=== PATIENT | female | born 1990 ===

== ENCOUNTER 2018-10-15 08:03 | Emergency (ER) | payer SELFPAY ==
--- NOTE | 2018-10-15 09:32 | ER ---
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 Transition of care: patient was not received from another setting of care. Onset of symptoms was October 15, 2018. Risk Assessment: Do you want to hurt yourself or someone else? Patient reports no desire to harm self or others. Initial Sepsis Screen: Does the patient meet any 2 criteria? No. Patient's initial sepsis screen is negative. Does the patient have a suspected source of infection? No. Patient's initial sepsis screen is negative. Care prior to arrival: None. 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 - Social history:: Smoking status: Patient/guardian denies using tobacco. - Ebola Screening: : No symptoms or risks identified at this time. - Family history:: not pertinent. Screenin:22 Abuse screen: Denies threats or abuse. Denies injuries from another. Nutritional hb screening: No deficits noted. Tuberculosis screening: No symptoms or risk factors identified. Fall Risk None identified. Assessment: 08:30 General: Appears in no apparent distress. uncomfortable, Behavior is calm, cooperative, ph appropriate for age. Pain: Complains of pain in dorsum of left foot. Neuro: Level of Consciousness is awake, alert, obeys commands, Oriented to person, place, time, situation. Cardiovascular: Capillary refill < 3 seconds in bilateral fingers toes Patient's skin is warm and dry. Respiratory: Airway is patent Respiratory effort is even, unlabored. Derm: Skin is healthy with good turgor, Skin is pink, warm \T\ dry. Musculoskeletal: Circulation, motion, and sensation intact. Range of motion: intact in all extremities. Injury Description: Abrasion sustained to left knee. 10:15 Reassessment: Patient appears in no apparent distress at this time. Patient and/or ph family updated on plan of care and expected duration. Pain level reassessed. Patient is alert, oriented x 3, equal unlabored respirations, skin warm/dry/pink. Pt d/c home w/ SO. Vital Signs: 08:20 BP 139 / 82; Pulse 101; Resp 16; Temp 98; Pulse Ox 100% ; Pain 8/10; hb ED Course: 08:07 Patient arrived in ED. tw3 08:20 Mick Beckman MD is Attending Physician. agustina 08:22 Triage completed. hb 08:22 Arm band placed on. hb 08:47 Foot Left 3 View XRAY In Process Unspecified. EDMS 09:20 Davis Alvarez MD is Referral Physician. agustina 09:35 Jennifer Cullen, RN is Primary Nurse. ph 09:53 WALKING BOOT FITTED ON PATIENT. mh5 09:55 Patient has correct armband on for positive identification. Bed in low position. Adult mh5 w/ patient. Pulse ox on. NIBP on. 10:15 No provider procedures requiring assistance completed. Patient did not have IV access ph during this emergency room visit. Administered Medications: 10:15 Drug: [place] 10 mg-325 mg 1 tabs Route: PO; hb 12:03 Follow up: Response: No adverse reaction ph 10:15 Drug: Neosporin Ointment 1 application Route: Topical; Site: affected area; hb 12:03 Follow up: Response: No adverse reaction ph 10:15 Drug: Zofran 4 mg Route: PO; hb 12:03 Follow up: Response: No adverse reaction ph Outcome: 09:30 Discharge ordered by . agustina 10:22 Patient left the ED. ph 10:22 Discharged to home ambulatory, with crutches, with significant other. ph 10:22 Condition: good 10:22 Discharge instructions given to patient, Instructed on discharge instructions, follow up and referral plans. medication usage, Demonstrated understanding of instructions, follow-up care, medications, Prescriptions given X 3. Signatures: Dispatcher [employer] EDHI Mick Beckman MD MD cha Hall, Patricia, RN RN ph Ananya Blake RN RN Jessy Gilliland [facility] Navi, [facility]
--- NOTE | 2018-10-15 09:32 | EDPHYS ---
Physician Documentation [facility] Name: Rosa Montgomery Age: 28 yrs Sex: Female : 1990 Arrival Date: 10/15/2018 Time: 08:07 Bed 17 Private MD: ED Physician Mick Beckman HPI: 10/15 09:18 This 28 yrs old Female presents to ER via Ambulatory with complaints of Foot agustina Pain. 09:18 The patient presents with decreased range of motion, an injury, pain, swelling, agustina tenderness. The complaints affect the left foot. Context: The problem was sustained on a street or driveway. Onset: The symptoms/episode began/occurred just prior to arrival. Modifying factors: The symptoms are alleviated by elevation of extremity, the symptoms are aggravated by weight bearing, movement. Associated signs and symptoms: The patient has no apparent associated signs or symptoms. Severity of symptoms: At their worst the symptoms were mild, moderate, in the emergency department the symptoms are unchanged. 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 - Social history:: Smoking status: Patient/guardian denies using tobacco. - Ebola Screening: : No symptoms or risks identified at this time. - Family history:: not pertinent. ROS: 09:18 Constitutional: Negative for fever, chills, and weight loss, Eyes: Negative for injury, agustina pain, redness, and discharge, ENT: Negative for injury, pain, and discharge, Neck: Negative for injury, pain, and swelling, Cardiovascular: Negative for chest pain, palpitations, and edema, Respiratory: Negative for shortness of breath, cough, wheezing, and pleuritic chest pain, Abdomen/GI: Negative for abdominal pain, nausea, vomiting, diarrhea, and constipation, Back: Negative for injury and pain, : Negative for injury, bleeding, discharge, and swelling, Skin: Negative for injury, rash, and discoloration, Neuro: Negative for headache, weakness, numbness, tingling, and seizure, Psych: Negative for depression, anxiety, suicide ideation, homicidal ideation, and hallucinations, Allergy/Immunology: Negative for hives, rash, and allergies, Endocrine: Negative for neck swelling, polydipsia, polyuria, polyphagia, and marked weight changes, Hematologic/Lymphatic: Negative for swollen nodes, abnormal bleeding, and unusual bruising. 09:18 MS/extremity: Positive for decreased range of motion, pain, swelling, tenderness, of the dorsum of left foot, left fourth toe and left fifth toe. Exam: 09:18 Constitutional: This is a well developed, well nourished patient who is awake, alert, agustina and in no acute distress. Head/Face: Normocephalic, atraumatic. Eyes: Pupils equal round and reactive to light, extra-ocular motions intact. Lids and lashes normal. Conjunctiva and sclera are non-icteric and not injected. Cornea within normal limits. Periorbital areas with no swelling, redness, or edema. ENT: Nares patent. No nasal discharge, no septal abnormalities noted. Tympanic membranes are normal and external auditory canals are clear. Oropharynx with no redness, swelling, or masses, exudates, or evidence of obstruction, uvula midline. Mucous membranes moist. Neck: Trachea midline, no thyromegaly or masses palpated, and no cervical lymphadenopathy. Supple, full range of motion without nuchal rigidity, or vertebral point tenderness. No Meningismus. Chest/axilla: Normal chest wall appearance and motion. Nontender with no deformity. No lesions are appreciated. Cardiovascular: Regular rate and rhythm with a normal S1 and S2. No gallops, murmurs, or rubs. Normal PMI, no JVD. No pulse deficits. Respiratory: Lungs have equal breath sounds bilaterally, clear to auscultation and percussion. No rales, rhonchi or wheezes noted. No increased work of breathing, no retractions or nasal flaring. Abdomen/GI: Soft, non-tender, with normal bowel sounds. No distension or tympany. No guarding or rebound. No evidence of tenderness throughout. Back: No spinal tenderness. No costovertebral tenderness. Full range of motion. Skin: Warm, dry with normal turgor. Normal color with no rashes, no lesions, and no evidence of cellulitis. Neuro: Awake and alert, GCS 15, oriented to person, place, time, and situation. Cranial nerves II-XII grossly intact. Motor strength 5/5 in all extremities. Sensory grossly intact. Cerebellar exam normal. Normal gait. Psych: Awake, alert, with orientation to person, place and time. Behavior, mood, and affect are within normal limits. 09:18 Musculoskeletal/extremity: Extremities: noted in the dorsum of left foot, left fourth toe and left fifth toe: decreased ROM, pain. Vital Signs: 08:20 BP 139 / 82; Pulse 101; Resp 16; Temp 98; Pulse Ox 100% ; Pain 8/10; hb MDM: 08:20 Patient medically screened. [facility] 09:18 Data reviewed: vital signs, nurses notes, radiologic studies. [facility] 10/15 08:26 Order name: Foot Left 3 View XRAY; Complete Time: 10:08 10/15 09:32 Order name: Ice pack; Complete Time: 09:55 [facility] 10/15 09:32 Order name: Walking boot: short; Complete Time: 09:36 [facility] Administered Medications: 10:15 Drug: [place] 10 mg-325 mg 1 tabs Route: PO; hb 12:03 Follow up: Response: No adverse reaction ph 10:15 Drug: Neosporin Ointment 1 application Route: Topical; Site: affected area; hb 12:03 Follow up: Response: No adverse reaction ph 10:15 Drug: Zofran 4 mg Route: PO; hb 12:03 Follow up: Response: No adverse reaction ph Disposition: 10/15/18 09:30 Discharged to Home. Impression: Displaced fracture of fourth metatarsal bone, unspecified foot - distal, Contusion of left knee, Abrasion, left knee. - Condition is Stable. - Discharge Instructions: Metatarsal Fracture. - Prescriptions for Tylenol- Codeine #3 300-30 mg Oral Tablet - take 2 tablet by ORAL route every 6 hours As needed; 30 tablet. Motrin IB 200 mg Oral Tablet - take 2 tablet by ORAL route every 6 hours As needed as needed with food; 30 tablet. Zofran 4 mg Oral Tablet - take 1 tablet by ORAL route every 12 hours As needed; 14 tablet. - Medication Reconciliation Form, Thank You Letter, Antibiotic Education, Prescription Opioid Use form. - Follow up: Private Physician; When: 2 - 3 days; Reason: Recheck today's complaints, Continuance of care, Re-evaluation by your physician. Follow up: Davis Alvarez MD; When: 2 - 3 days; Reason: Recheck today's complaints, Re-evaluation by your physician. - Problem is new. - Symptoms have improved. Signatures: Dispatcher [employer] EDMick Mcmullen MD MD cha Hall, Patricia, KALEIGH RN Ananya Blake RN RN Corrections: (The following items were deleted from the chart) 10:22 09:30 10/15/2018 09:30 Discharged to Home. Impression: Displaced fracture of fourth ph metatarsal bone, unspecified foot - distal; Contusion of left knee; Abrasion, left knee. Condition is Stable. Forms are Medication Reconciliation Form, Thank You Letter, Antibiotic Education, Prescription Opioid Use. Follow up: Private Physician; When: 2 - 3 days; Reason: Recheck today's complaints, Continuance of care, Re-evaluation by your physician. Follow up: Davis Alvarez; When: 2 - 3 days; Reason: Recheck today's complaints, Re-evaluation by your physician. Problem is new. Symptoms have improved. agustina
--- NOTE | 2018-10-15 09:45 | RAD REPORT ---
EXAM DESCRIPTION: RAD - Foot Left 3 View - 10/15/2018 8:47 am CLINICAL HISTORY: Left Foot pain status post fall FINDINGS: Mildly impacted fracture involves the fourth metatarsal neck. No dislocation seen
[2018-10-15] MEDS ORDERED: HYDROCODONE/APAP 10/325 TAB ONE (10:12)
[2018-10-15] MEDS ORDERED: ONDANSETRON 4 MG (ODT) TAB ONE (10:28)
== END 2018-10-15 10:22 | disposition home or self-care (01) ==
LOC: ER 08:03
DX: S92.342A Displaced fracture of fourth metatarsal bone, left foot, initial encounter for closed fracture (principal); S80.02XA Contusion of left knee, initial encounter; S80.212A Abrasion, left knee, initial encounter; W01.0XXA Fall on same level from slipping, tripping and stumbling without subsequent striking against object, initial encounter; Y93.9 Activity, unspecified; Y92.9 Unspecified place or not applicable
CPT/HCPCS: 99284

== ENCOUNTER 2020-11-12 23:11 | Emergency (ER) | payer OTHER ==
--- OUTSIDE RECORDS SUMMARY | 2020-11-12 23:14 | XMS REPORT | Continuity of Care Document ---
:1990 Author Organization [facility] t Address [address] [place] [address] Care Team Providers Name Role Phone Edie Meredith Attending Clinician Problems This patient has no known problems. Allergies, Adverse Reactions, Alerts This patient has no known allergies or adverse reactions. Medications This patient has no known medications. Procedures This patient has no known procedures. Encounters Start End Encounter Admission Attending Care Care Encounter Source Date/Time Date/Time Type Type Clinicians Facility Department ID 2020-10-25 2020-10-25 Telephone DOROTEO Pavon [id number] 00:00:00 00:00:00 Shanta Irizarry HOSPICE ADMINISTRATOR [id number] [facility] [id number] MATERNAL [id number] & CHILD [address] [place] [address] Results This patient has no known results.
[2020-11-12 23:36] LABS: Urine Blood 2+ (Negative); Urine Glucose Negative (Negative); Urine Protein Negative (Negative); Urine Specific Gravity 1.015 (1.005-1.030)
[2020-11-13] MEDS ORDERED: NA CHLORIDE 0.9% 1,000 ML ONE (00:14)
[2020-11-13 00:16] LABS: ALT/SGPT 34 U/L (12-78); AST/SGOT 19 U/L (15-37); Albumin 4.2 g/dL (3.4-5.0); Alkaline Phosphatase 91 U/L (45-117); BUN Blood Urea Nitrogen 19 mg/dL (7-18); Bicarbonate 26 mmol/L (21-32); Bilirubin Direct < 0.1 mg/dL (0-0.2); Bilirubin Total 0.4 mg/dL (0.2-1.0); Glucose Level 138 mg/dL (74-106); Lipase 121 U/L (73-393); Potassium 3.5 mmol/L (3.5-5.1); Protein, Total 7.8 g/dL (6.4-8.2); Sodium Level 139 mmol/L (136-145)
[2020-11-13] MEDS ORDERED: ONDANSETRON 4 MG/2 ML VIAL ONE ×2 (00:21→02:04)
[2020-11-13 00:22] LABS: Absolute Lymphocytes (CBC) 1.7 K/uL (0.7-4.9); Basophils % 0.4 % (0-1.3); Hematocrit 42.4 % (36.0-45.0); Lymphocytes % 14.5 % (15.3-44.8); RBC Red Blood Cell Count 4.77 M/uL (3.86-4.86)
[2020-11-13] MEDS ORDERED: CEFTRIAXONE/SWI 1gm 1 GM/10 ML SYR ONE (00:34)
--- NOTE | 2020-11-13 01:50 | ER ---
Nurse's Notes [facility] Name: Rosa Padilla Age: 30 yrs Sex: Female : 1990 Arrival Date: 11/12/2020 Time: 23:12 Bed 7 Private MD: Diagnosis: Acute cystitis without hematuria-with right pyelonephritis Presentation: 11/12 23:21 Chief complaint: Patient states: she is having a sudden sharp pain in her right side bb which just started feels nauseous, chills, no vomiting, no diarrhea. Coronavirus screen: At this time, the client does not indicate any symptoms associated with coronavirus-19. Ebola Screen: No symptoms or risks identified at this time. Initial Sepsis Screen: Does the patient meet any 2 criteria? No. Patient's initial sepsis screen is negative. Does the patient have a suspected source of infection? No. Patient's initial sepsis screen is negative. Risk Assessment: Do you want to hurt yourself or someone else? Patient reports no desire to harm self or others. Onset of symptoms was November 12, 2020. 23:21 Method Of Arrival: Ambulatory bb 23:21 Acuity: KIM 3 bb Triage Assessment: 23:24 General: Appears uncomfortable, Behavior is cooperative, anxious. Pain: Pain: Complains bb of pain in abdomen Pain currently is 8 out of 10 on a pain scale. Pain began suddenly. Neuro: Level of Consciousness is awake, alert, obeys commands, Oriented to person, place, time, situation. Cardiovascular: No deficits noted. Respiratory: Respiratory effort is even, unlabored. GI: Abdomen is non-distended, Reports lower abdominal pain. : Reports urgency. Derm: Skin is pink, warm \T\ dry. Musculoskeletal: Circulation, motion, and sensation intact. 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 - Social history:: Smoking status: Patient denies any tobacco usage or history of. Patient/guardian denies using alcohol, street drugs, The patient lives with family. - Family history:: not pertinent. Screenin:30 Abuse screen: Denies threats or abuse. Denies injuries from another. Nutritional wh screening: No deficits noted. Tuberculosis screening: No symptoms or risk factors identified. Fall Risk None identified. Assessment: 23:30 General: Appears in no apparent distress. Behavior is calm, cooperative, appropriate wh for age. Pain: Complains of pain in right upper quadrant and right lower quadrant Pain radiates to back Pain began suddenly. Neuro: Level of Consciousness is awake, alert, obeys commands, Oriented to person, place, time, situation, Appropriate for age. Cardiovascular: Heart tones S1 S2. Respiratory: Airway is patent Respiratory effort is even, unlabored, Respiratory pattern is regular, symmetrical. GI: Abdomen is flat, non-distended, Bowel sounds present X 4 quads. Abd is soft and non tender X 4 quads. Reports lower abdominal pain, upper abdominal pain, nausea. : No signs and/or symptoms were reported regarding the genitourinary system. EENT: No signs and/or symptoms were reported regarding the EENT system. Derm: Skin is intact, is healthy with good turgor, Skin is pink, warm \T\ dry. normal. Musculoskeletal: Circulation, motion, and sensation intact. 11/13 00:45 Reassessment: Patient appears in no apparent distress at this time. No changes from previously documented assessment. Patient and/or family updated on plan of care and expected duration. Pain level reassessed. Patient is alert, oriented x 3, equal unlabored respirations, skin warm/dry/pink. 02:00 Reassessment: Patient appears in no apparent distress at this time. Patient and/or family updated on plan of care and expected duration. Pain level reassessed. Patient is alert, oriented x 3, equal unlabored respirations, skin warm/dry/pink. Patient states feeling better. Patient states symptoms have improved. Vital Signs: 11/12 23:21 BP 142 / 89; Pulse 108; Resp 99 S; Temp 98.4(O); Weight 72.57 kg (R); Height 5 ft. 5 bb in. (165.10 cm) (R); Pain 7/10; 23:41 Resp 19 S; bb 11/13 00:30 BP 119 / 90; Pulse 82; Resp 18; Pulse Ox 99% on R/A; 02:00 BP 129 / 87; Pulse 84; Resp 18; Pulse Ox 98% on R/A; 11/12 23:21 Body Mass Index 26.63 (72.57 kg, 165.10 cm) bb ED Course: 11/12 23:12 Patient arrived in ED. cl3 23:23 Triage completed. bb 23:24 Arm band placed on Patient placed in an exam room, on a stretcher, on pulse oximetry. bb Family accompanied patient. 23:27 Candy Mackenzie MD is Attending Physician. ma2 23:28 Jatinder Palumbo, KALEIGH is Primary Nurse. 23:30 Patient has correct armband on for positive identification. Bed in low position. Call light in reach. Side rails up X 1. Pulse ox on. NIBP on. 23:43 Inserted saline lock: 20 gauge in right antecubital area, using aseptic technique. oe Blood collected. 11/13 00:55 CT Abd/Pelvis - IV Contrast Only In Process Unspecified. EDMS 02:17 No provider procedures requiring assistance completed. IV discontinued, intact, bleeding controlled, No redness/swelling at site. Administered Medications: 00:03 Drug: NS 0.9% 1000 ml Route: IV; Rate: 1 bolus; Site: right antecubital; 01:53 Follow up: Response: No adverse reaction; IV Status: Completed infusion 00:16 Drug: Rocephin (cefTRIAXone) 1 grams Route: IV; Rate: calculated rate; Site: right antecubital; 01:53 Follow up: Response: No adverse reaction; IV Status: Completed infusion 00:18 Drug: Zofran (Ondansetron) 4 mg Route: IVP; Site: right antecubital; 01:52 Follow up: Response: No adverse reaction; Nausea is decreased 01:50 Drug: morphine 4 mg {Note: RASS 0.} Route: IVP; Site: right antecubital; 02:18 Follow up: Response: No adverse reaction; Pain is decreased; RASS: Alert and Calm (0) 01:52 Drug: Zofran (Ondansetron) 4 mg Route: IVP; Site: right antecubital; 02:18 Follow up: Response: No adverse reaction Outcome: 01:50 Discharge ordered by . ma2 02:17 Discharged to home ambulatory, with family. 02:17 Condition: stable 02:17 Discharge instructions given to patient, family, Instructed on discharge instructions, follow up and referral plans. medication usage, POC Demonstrated understanding of instructions, follow-up care, medications, POC Prescriptions given X 3. 02:18 Patient left the ED. Signatures: Dispatcher [employer] EDNataly Guadarrama RN RN bb Espinosa, Orlando oe Habalo, Winsy, RN RN Candy Mackenzie MD MD ma2 Efrain Robert cl3
--- NOTE | 2020-11-13 01:50 | EDPHYS ---
Physician Documentation [facility] Name: Rosa Padilla Age: 30 yrs Sex: Female : 1990 Arrival Date: 11/12/2020 Time: 23:12 Bed 7 Private MD: ED Physician Candy Mackenzie HPI: 11/13 00:40 This 30 yrs old Female presents to ER via Ambulatory with complaints of Abdominal Pain, ma2 Nausea/Vomiting. 00:40 The patient presents to the emergency department with nausea, vomiting. Onset: The ma2 symptoms/episode began/occurred gradually, 1 day(s) ago. Associated signs and symptoms: Pertinent negatives: constipation, fever, GI bleeding. Severity of symptoms: At their worst the symptoms were mild in the emergency department the symptoms are unchanged. The patient has not experienced similar symptoms in the past. 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 - Social history:: Smoking status: Patient denies any tobacco usage or history of. Patient/guardian denies using alcohol, street drugs, The patient lives with family. - Family history:: not pertinent. ROS: 11/13 00:40 Constitutional: Negative for fever, chills, and weight loss. ma2 All other systems are negative. Exam: 00:40 Constitutional: This is a well developed, well nourished patient who is awake, alert, ma2 and in no acute distress. Head/Face: Normocephalic, atraumatic. Eyes: Pupils equal round and reactive to light, extra-ocular motions intact. Lids and lashes normal. Conjunctiva and sclera are non-icteric and not injected. Cornea within normal limits. Periorbital areas with no swelling, redness, or edema. ENT: Nares patent. No nasal discharge, no septal abnormalities noted. Tympanic membranes are normal and external auditory canals are clear. Oropharynx with no redness, swelling, or masses, exudates, or evidence of obstruction, uvula midline. Mucous membranes moist. Neck: Trachea midline, no thyromegaly or masses palpated, and no cervical lymphadenopathy. Supple, full range of motion without nuchal rigidity, or vertebral point tenderness. No Meningismus. Chest/axilla: Normal chest wall appearance and motion. Nontender with no deformity. No lesions are appreciated. Cardiovascular: Regular rate and rhythm with a normal S1 and S2. No gallops, murmurs, or rubs. Normal PMI, no JVD. No pulse deficits. Respiratory: Lungs have equal breath sounds bilaterally, clear to auscultation and percussion. No rales, rhonchi or wheezes noted. No increased work of breathing, no retractions or nasal flaring. Abdomen/GI: Soft,mildly tender in rlq, , with normal bowel sounds. No distension or tympany. No guarding or rebound. Back: No spinal tenderness. No costovertebral tenderness. Full range of motion. Skin: Warm, dry with normal turgor. Normal color with no rashes, no lesions, and no evidence of cellulitis. MS/ Extremity: Pulses equal, no cyanosis. Neurovascular intact. Full, normal range of motion. Neuro: Awake and alert, GCS 15, oriented to person, place, time, and situation. Cranial nerves II-XII grossly intact. Motor strength 5/5 in all extremities. Sensory grossly intact. Cerebellar exam normal. Normal gait. Vital Signs: 11/12 23:21 BP 142 / 89; Pulse 108; Resp 99 S; Temp 98.4(O); Weight 72.57 kg (R); Height 5 ft. 5 bb in. (165.10 cm) (R); Pain 7/10; 23:41 Resp 19 S; bb 11/13 00:30 BP 119 / 90; Pulse 82; Resp 18; Pulse Ox 99% on R/A; 02:00 BP 129 / 87; Pulse 84; Resp 18; Pulse Ox 98% on R/A; wh 11/12 23:21 Body Mass Index 26.63 (72.57 kg, 165.10 cm) [facility]: 11/12 23:27 Patient medically screened. [facility] 11/13 00:40 Differential diagnosis: Nonspecific abd pain, gastritis, viral gastroenteritis, ma2 gastroenteritis. 01:49 Data reviewed: vital signs, nurses notes. Counseling: I had a detailed discussion with ma2 the patient and/or guardian regarding: the historical points, exam findings, and any diagnostic results supporting the discharge/admit diagnosis, the presence of at least one elevated blood pressure reading (>120/80) during this emergency department visit, the need for outpatient follow up. Response to treatment: the patient's symptoms have markedly improved after treatment. 11/12 23:28 Order name: Basic Metabolic Panel [facility] 11/12 23:28 Order name: CBC with Diff [facility] 11/12 23:28 Order name: Hepatic Function; Complete Time: 00:55 [facility] 11/12 23:28 Order name: Lipase; Complete Time: 00:55 [facility] 11/12 23:29 Order name: Basic Metabolic Panel; Complete Time: 00:55 [facility] 11/12 23:29 Order name: CBC with Automated Diff; Complete Time: 00:55 [facility] 11/12 23:36 Order name: Urine Dipstick-Ancillary; Complete Time: 00:09 [facility] 11/12 23:37 Order name: Urine --Ancillary (enter results) [facility] 11/12 23:37 Order name: Urine --Ancillary [facility] 11/13 00:10 Order name: CT Abd/Pelvis - IV Contrast Only [facility] 11/13 01:50 Order name: Urine Culture [facility] 11/12 23:28 Order name: IV Saline Lock; Complete Time: 23:42 [facility] 11/12 23:28 Order name: Labs collected and sent; Complete Time: 23:42 [facility] 11/12 23:28 Order name: Urine Dipstick-Ancillary (obtain specimen); Complete Time: 23:42 [facility] Administered Medications: 00:03 Drug: NS 0.9% 1000 ml Route: IV; Rate: 1 bolus; Site: right antecubital; 01:53 Follow up: Response: No adverse reaction; IV Status: Completed infusion 00:16 Drug: Rocephin (cefTRIAXone) 1 grams Route: IV; Rate: calculated rate; Site: right wh antecubital; 01:53 Follow up: Response: No adverse reaction; IV Status: Completed infusion 00:18 Drug: Zofran (Ondansetron) 4 mg Route: IVP; Site: right antecubital; 01:52 Follow up: Response: No adverse reaction; Nausea is decreased 01:50 Drug: morphine 4 mg {Note: RASS 0.} Route: IVP; Site: right antecubital; 02:18 Follow up: Response: No adverse reaction; Pain is decreased; RASS: Alert and Calm (0) 01:52 Drug: Zofran (Ondansetron) 4 mg Route: IVP; Site: right antecubital; 02:18 Follow up: Response: No adverse reaction Disposition: 11/13/20 01:50 Discharged to Home. Impression: Acute cystitis without hematuria - with right pyelonephritis. - Condition is Stable. - Discharge Instructions: Urinary Tract Infection, Adult. - Prescriptions for Bactrim DS 800- 160 mg Oral Tablet - take 1 tablet by ORAL route every 12 hours for 7 days; 14 tablet. Zofran 4 mg Oral Tablet - take 1 tablet by ORAL route every 12 hours As needed; 20 tablet. Diclofenac Sodium 75 mg Oral Tablet Sustained Release - take 1 tablet by ORAL route 2 times per day; 30 tablet. - Medication Reconciliation Form, Thank You Letter, Antibiotic Education, Prescription Opioid Use form. - Follow up: Private Physician; When: Tomorrow; Reason: If symptoms return. - Notes: folow up with health insurance agent Signatures: Dispatcher [employer] EDNataly Guadarrama RN RN bb Habalo, Winsy, RN RN Candy Mackenzie MD MD ma2 Corrections: (The following items were deleted from the chart) 02:18 01:50 11/13/2020 01:50 Discharged to Home. Impression: Acute cystitis without hematuria - with right pyelonephritis. Condition is Stable. Prescriptions for Zofran 4 mg Oral Tablet - take 1 tablet by ORAL route every 12 hours As needed; 20 tablet, Diclofenac Sodium 75 mg Oral Tablet Sustained Release - take 1 tablet by ORAL route 2 times per day; 30 tablet, Bactrim DS 800-160 mg Oral Tablet - take 1 tablet by ORAL route every 12 hours for 7 days; 14 tablet. and Forms are Medication Reconciliation Form, Thank You Letter, Antibiotic Education, Prescription Opioid Use. Follow up: Private Physician; When: Tomorrow; Reason: If symptoms return. ma2
[2020-11-13] MEDS ORDERED: MORPHINE 4 MG/ML SYR ONE (02:04)
[2020-11-13 02:31] LABS: Urine Specific Gravity/Preg 1.015 (1.005-1.030)
[2020-11-13 03:32] VITALS: TEMP 98.4
[2020-11-13 03:36] VITALS: BP 129/87; O2SAT 98
--- NOTE | 2020-11-13 12:33 | RAD REPORT ---
EXAM DESCRIPTION: CT - Abdomen Pelvis W Contrast - 11/13/2020 3:32 am CLINICAL HISTORY: Rlq abd pain and ruq ;Abd pain. COMPARISON: None. TECHNIQUE: CT of the abdomen and pelvis was performed following intravenous administration of iodina zaida contrast. Arterial phase images through the abdomen, and portal venous phase images through the a bdomen and pelvis were obtained. Oral contrast was not administered. Axial, coronal, and sagittal sof t tissue window reconstructions were created and sent to PACS. This exam was performed according to our departmental dose-optimization program, which includes autom ated exposure control, adjustment of the mA and/or kV according to patient size and/or use of iterati ve reconstruction technique. FINDINGS: Thoracic: No significant abnormality. Hepatobiliary: No concerning hepatic lesion identified. The hepatic and portal veins are patent. The gallbladder is unremarkable. No biliary ductal dilatation. Pancreas: Unremarkable. Spleen: Unremarkable. Gastrointestinal: No evidence of bowel obstruction or perienteric inflammation. The appendix is rich l. Small to moderate amount of fecal material throughout the colon. Adrenals: No abnormality identified in either adrenal gland. Renal: Tiny superior right renal hypodensity, likely a cyst. No concerning parenchymal abnormality in either kidney. No hydronephrosis or urolithiasis. Bladder/Reproductive: Unremarkable appearance of the urinary bladder by CT technique. Unremarkable CT appearance of the uterus and ovaries. Vascular/Lymphatics: No lymphadenopathy identified by CT size criteria. Abdominal aorta is normal in caliber. The major visceral vessels are patent. Musculoskeletal: No concerning osseous lesion identified. Fluid / peritoneum: No significant free fluid. No free intraperitoneal air identified. IMPRESSION 1. No acute abnormality identified in the abdomen or pelvis by CT. 2. Normal appendix. Unremarkable appearance of the gallbladder and biliary system. Electronically signed by: Dianne Ya MD 11/13/2020 1:00 AM CDT Due to temporary technical issues with the PACS/Fluency reporting system, reports are being signed by the in house radiologist without review as a courtesy to ensure prompt reporting. The interpreting r adiologist is fully responsible for the content of the report.
== END 2020-11-13 02:18 | disposition home or self-care (01) ==
LOC: ER 23:11
DX: N30.00 Acute cystitis without hematuria (principal); N12 Tubulo-interstitial nephritis, not specified as acute or chronic; Z88.1 Allergy status to other antibiotic agents; Z88.3 Allergy status to other anti-infective agents
CPT/HCPCS: 87088; 85025; 87086; 80048; 36415; 81025; 80076; 81003; 83690; 74177; Q9967; J0696; J2405 ×2; 96365; 96366; 96375; 99284